=== PATIENT | female | born 1945 | race Caucasian/White ===

== ENCOUNTER 2016-08-19 18:57 | Emergency (ER) | payer MEDICARE, BC ==
[2016-08-19 20:04] VITALS: BP 141/63
[2016-08-19] MEDS ORDERED: predniSONE TAB* 20 MG PO ONE (20:04)
--- NOTE | 2016-08-19 20:45 | ED ---
Ernesto Tariq Alok, scribed for Abeba Lizarraga MD on 08/19/16 at 2002 . Throat Pain/Nasal Congestion - HPI Summary HPI Summary: 71F presents to the ED with fullness of the right hear accompanied by warmth, tinnitus, throbbing, and hearing loss. Pt state that her ear symptoms began today at approximately 1400 today while hiking. Pt states that her ear fullness is worse when bending over. Pt also notes aching below her right ear earlier which has subsided since. Pt also notes leg cramps more than baseline for the past few weeks. Pt denies trauma or recent swimming. Pt denies sinus pain. Pt denies dizziness. PMHx includes HLD and rapid heart beat. - History of Current Complaint Chief Complaint: EDEarPain Time Seen by Provider: 08/19/16 19:17 Hx Obtained From: Patient Onset/Duration: Lasting Hours, Still Present Severity: Moderate Associated Signs And Symptoms: Negative: Sinus Discomfort - Allergies/Home Medications Allergies/Adverse Reactions: Allergies Allergy/AdvReac Type Severity Reaction Status Date / Time Oxycodone [From Percocet] Allergy RAPID Verified 05/10/15 09:26 HEART RATE Sulfa Antibiotics Allergy Unknown Verified 05/10/15 09:26 Reaction Details ADHESIVE TAPE Allergy ITCHY RASH Uncoded 05/10/15 09:26 PMH/Surg Hx/FS Hx/Imm Hx Endocrine/Hematology History: Denies: Hx Diabetes Cardiovascular History: Reports: Hx Angina - NOT FOR YEARS, Hx Hypercholesterolemia, Hx Hypertension Denies: Hx Pacemaker/ICD Respiratory History: Denies: Hx Chronic Obstructive Pulmonary Disease (COPD) GI History: Reports: Hx Gastroesophageal Reflux Disease - WELL CONTROLLED History: Denies: Hx Dialysis Musculoskeletal History: Reports: Hx Arthritis - BILAT, Hx Orthopedic Injury - fractured ankle, Other Musculoskeletal History - sciatica 3 YRS Denies: Hx Back Problems, Hx Osteoporosis Sensory History: Reports: Hx Cataracts, Hx Contacts or Glasses - GLASSES Denies: Hx Hearing Aid Opthamlomology History: Reports: Hx Cataracts, Hx Contacts or Glasses - GLASSES Neurological History: Reports: Other Neuro Impairments/Disorders - OCC VERTIGO Denies: Hx Dementia, Hx Seizures Psychiatric History: Denies: Hx Panic Disorder - Cancer History Cancer Type, Location and Year: left breast cancer 2000 Hx Chemotherapy: No Hx Radiation Therapy: No - Surgical History Surgery Procedure, Year, and Place: hysterectomy [facility] 2000. knee arthroscopy - 2003 Lt. bilat cataract removal. lumpectomy left breast 2000. 2007 Rt [facility] ARTHROSCOPY. LEFT TKR 08/16 [facility] Hx Anesthesia Reactions: No Infectious Disease History: Reports: Hx Shingles - 2002 right leg Denies: Traveled Outside the [place] in Last 30 Days - Family History Known Family History: Positive: Other - No - HLD - Social History Occupation: Retired Lives: With Family Alcohol Use: Rare Substance Use Type: Reports: None Hx Tobacco Use: Yes Smoking Status (MU): Former Smoker Type: Cigarettes Length of Time of Smoking/Using Tobacco: 20 YRS Have You Smoked in the Last Year: No Review of Systems Negative: Fever Positive: Ear Ache, Other - tinnitus, hearing loss Neurological: Other - negative : dizziness All Other Systems Reviewed And Are Negative: Yes Physical Exam Triage Information Reviewed: Yes Vital Signs On Initial Exam: Initial Vitals Temp Pulse Resp BP Pulse Ox 97.8 F 97 16 152/72 99 08/19/16 18:59 08/19/16 18:59 08/19/16 18:59 08/19/16 18:59 08/19/16 18:59 Vital Signs Reviewed: Yes Appearance: Positive: Well-Appearing, No Pain Distress Skin: Positive: Warm, Skin Color Reflects Adequate Perfusion, Dry Eyes: Positive: EOMI, MARIELOS ENT: Positive: Pharynx normal, TMs normal Neck: Positive: Supple, Nontender Respiratory/Lung Sounds: Positive: Clear to Auscultation, Breath Sounds Present. Negative: Rales, Rhonchi, Wheezes Cardiovascular: Positive: RRR, Other - no gallop. Negative: Murmur, Rub Abdomen Description: Positive: Nontender, Soft, Other: - no rebound. Negative: Distended, Guarding Bowel Sounds: Positive: Present Musculoskeletal: Positive: Strength/ROM Intact. Negative: Edema Left, Edema Right Neurological: Positive: Sensory/Motor Intact, Alert, Oriented to Person Place, Time, CN Intact II-III Psychiatric: Positive: Affect/Mood Appropriate Diagnostics - Vital Signs Vital Signs Temp Pulse Resp BP Pulse Ox 08/19/16 18:59 97.8 F 97 16 152/72 99 - Laboratory Lab Statement: Any lab studies that have been ordered have been reviewed, and results considered in the medical decision making process. EENT Course/Dx - Course Course Of Treatment: 71 yo female with whooshing in her right ear since 2pm today, no baurotrauma, +hearing loss, exam normal. started on prednisone burst urgent f/u with ent for a hearing test, normal neuro exam - Diagnoses Provider Diagnoses: Tinnitus, Hearing loss - Provider Notifications Discussed Care Of Patient With: Arpan Addison - Recommends steroids, no decongestant Time Discussed With Above Provider: 20:05 Discharge - Discharge Plan Condition: Stable Disposition: HOME Prescriptions: predniSONE TAB* [Deltasone TAB*] 60 mg PO DAILY #12 tab Patient Education Materials: Tinnitus (ED), Hearing Loss (ED) Referrals: Arpan Addison MD [Medical Doctor] - 1 Day Additional Instructions: Please follow up with Dr. Addison as soon as possible. The documentation as recorded by the Ernesto mota Alok accurately reflects the service I personally performed and the decisions made by me, Abeba Lizarraga MD.
== END 2016-08-19 21:09 | disposition home or self-care (01) ==
LOC: ED 18:57
DX: H93.19 Tinnitus, unspecified ear (principal); H91.90 Unspecified hearing loss, unspecified ear; H92.02 Otalgia, left ear; Z87.891 Personal history of nicotine dependence
CPT/HCPCS: 99282; J7512

== ENCOUNTER 2016-10-19 21:05 | Inpatient (IN) | payer MEDICARE, BC ==
[2016-10-19] MEDS ORDERED: Aspirin Low Dose CHEW TAB* 81 MG PO ONE (21:46)
[2016-10-19] MEDS ORDERED: Nitroglycerin 2% OINT* 1 GM PAK TOPICAL ONE (21:47)
[2016-10-19 21:57] LABS: Hematocrit 37 % (35-47); Hemoglobin 12.5 g/dl (12.0-16.0); Mean Corpuscular HGB Conc 34 g/dl (31-36); Mean Corpuscular Hemoglobin 31 pg (27-31); Mean Corpuscular Volume 91 fL (80-97); Mean Platelet Volume 9 um3 (7.4-10.4); Red Blood Count 4.05 10^6/ul (4.0-5.4); Red Cell Distribution Width 12 % (10.5-15); White Blood Count 6.3 10^3/ul (3.5-10.8)
[2016-10-19 22:14] LABS: Albumin 4.2 g/dL (3.2-5.2); BUN/Creatinine Ratio 18.1 (8-20); Calcium 8.9 mg/dL (8.6-10.3); EGFR African American 75.7 (>60); EGFR Non-African American 58.9 (>60); Globulin 2.6 g/dL (2-4); Magnesium 2.3 mg/dL (1.9-2.7); Total Bilirubin 0.3 mg/dL (0.2-1.0); Total Protein 6.8 g/dL (6.4-8.9)
--- NOTE | 2016-10-19 22:22 | RAD ---
INDICATION: Chest pain. COMPARISON: Comparison is made with a prior chest x-ray study from March 28, 2015. TECHNIQUE: A portable view of the chest was obtained. FINDINGS: Cardiac and mediastinal contours appear to be within normal limits. The lungs are clear. No pleural effusion is seen. IMPRESSION: NO EVIDENCE FOR ACUTE DISEASE.
[2016-10-19] MEDS ORDERED: Potassium Chlor TAB* 20 MEQ TAB.ER PO ONE (22:50)
[2016-10-19] MEDS ORDERED: Metoprolol Tartrate TAB* 25 MG PO SCH (23:00)
[2016-10-19] MEDS ORDERED: Nitroglycerin TAB 0.4 MG* 0.4 MG TAB SL PRN (23:44)
[2016-10-20] MEDS: Enoxaparin(*) 60 MG/0.6 ML SYR SUBCUT SCH ×3 (01:22→22:28)
[2016-10-20] MEDS: Atorvastatin* 10 MG TAB PO SCH ×2 (01:23→20:22)
[2016-10-20] MEDS: Metoprolol Tartrate TAB* 25 MG PO SCH ×2 (01:23→09:22)
--- NOTE | 2016-10-20 02:47 | HP ---
CC: Dr. Seth; Dr. Hammonds ADMISSION HISTORY AND PHYSICAL: DATE OF ADMISSION: 10/19/16 CHIEF COMPLAINT: Chest pain. HISTORY OF PRESENT ILLNESS: Ms. Nunez is a 71-year-old woman with a history of palpitations and heartburn who reports the onset of substernal chest pain at around 5:30 p.m. this evening which was severe, rated 8/10, and radiated to her left arm. This began at rest and after she ate some soup. H er gave her aspirin and called the ambulance and then she had nitroglycerin in the ambulance which seemed to relieve the pain. However, in the emergency department the pain returned and respo nded again to topical nitroglycerin. The pain was associated with some shortness of breath, but no nausea, vomiting, and no radiation to the neck. She did have some other right-sided neck discomfort earlier this week which was more like a sore throat and was thought to be allergies at the primary care office. She was given a steroid nasal spray for allergies. At the time of evaluation, the pat ient says that the substernal chest pain is resolved, but there is a mild residual discomfort in the left lower chest near the coastal margin. The pain is not respirophasic. The pain was not exertio nal today. PAST MEDICAL HISTORY: Includes palpitations and GERD. She also reports right- sided pulsatile tinn itus for many years. Left 50% carotid stenosis seen on carotid Doppler in 2013. PAST SURGICAL HISTORY: Bilateral total knee replacement, left breast lumpectomy in the year 1999 fo r cancer, and hysterectomy. MEDICATIONS: On admission are: 1. Aspirin 81 mg p.o. daily. 2. Calcium 1 tab daily. 3. Toprol XL 25 mg p.o. q.p.m. 4. Nitroglycerin sublingual as needed. 5. Jamison-3 fatty acids 1000 mg daily. 6. Ranitidine 150 mg p.o. b.i.d. 7. Simvastatin 10 mg p.o. at bedtime. ALLERGIES: SULFA, LATEX, OXYCODONE, and other CODEINE DERIVATIVES. FAMILY HISTORY: Notable for mother who developed heart disease in her 60s and at age 98. [facility] at age 74 of [place]. 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 She is , she has 2 children. Sh e quit tobacco in 1985. No alcohol or drug use. REVIEW OF SYSTEMS: The patient denies any fevers, weight loss, or anorexia. The patient denies any peripheral edema or shortness of breath with exertion. She did have some shortness of breath today with chest pain. She reports long-term palpitations and has had Holter monitors and actually has a 24-hour monitor scheduled next week with Dr. Hammonds. The patient denies any abdominal pain, eunice sea, vomiting, or diarrhea. Remainder of all 14-point review of systems is negative other than ment ioned in the HPI. PHYSICAL EXAMINATION GENERAL: She is alert, in no acute distress. VITAL SIGNS: Temperature is 37.4, pulse 70, respirations 18, blood pressure is 108/69, and O2 sat i s 96%. HEENT: Head is normocephalic and atraumatic. Sclerae anicteric. Pupils are equal, round, and reac tive to light and accommodation. Oropharynx is moist, no lesions. NECK: No JVD and no carotid bruits. No thyromegaly. LUNGS: Clear to auscultation and percussion bilaterally. HEART: Regular rate and rhythm without murmurs, rubs, or gallops. ABDOMEN: Soft and nontender with positive bowel sounds. No hepatosplenomegaly. EXTREMITIES: No peripheral edema, dorsalis pedis pulses are 1+ bilaterally. NEUROLOGIC: Cranial nerves II through XII are intact. Motor strength is 5/5 throughout. Deep tend on reflexes were symmetric. PSYCHIATRIC: She does appear somewhat anxious as does her . LABORATORY DATA: Sodium 140, potassium 3.0, chloride 104, bicarb 29, BUN 7, creatinine 0.94, gluco se 182, calcium 8.9, troponin 0.0. BNP 41, INR 0.86, PTT 27.1. White count 6.3, hemoglobin 12.5, h ematocrit 37, and platelets 233,000. EKG; sinus tachycardia, less than [address] depressions in V4 through V5 as well as in lead 2. Chest x-ray negative for infiltrates or effusions. ASSESSMENT AND PLAN: A 71-year-old woman presenting with onset of angina at rest. Differential coul d include unstable angina, pulmonary emboli, exacerbation of gastroesophageal reflux disease, costoc hondritis, or anxiety. The patient will be admitted to the hospital for observation and followed on telemetry for her arrhythmias. She will have serial troponins and repeat EKG in the morning. The patient will have a D-dimer checked on emergency room laboratories to rule out pulmonary embolism. She has ongoing reflux and she will be on ranitidine twice a day. We could add a PPI if that ends u p being the diagnosis of exclusion. The patient had low potassium on admission from unknown etiology. This will be repleted and recheck ed in the morning. DVT prophylaxis will not be necessary as she is on full-dose Lovenox for cardioprotection purposes. For her peripheral vascular disease and possible coronary artery disease, we will check her lipids i n the morning to ensure she is on the appropriate dose of statin. [id number]/[facility] #: [id number]
[2016-10-20 05:15] LABS: Hematocrit 35 % (35-47); Hemoglobin 11.7 g/dl (12.0-16.0); Mean Corpuscular HGB Conc 34 g/dl (31-36); Mean Corpuscular Hemoglobin 31 pg (27-31); Mean Corpuscular Volume 91 fL (80-97); Mean Platelet Volume 9 um3 (7.4-10.4); Red Blood Count 3.78 10^6/ul (4.0-5.4); Red Cell Distribution Width 12 % (10.5-15); White Blood Count 5.9 10^3/ul (3.5-10.8)
[2016-10-20 05:30] LABS: BUN/Creatinine Ratio 18.2 (8-20); Calcium 9.1 mg/dL (8.6-10.3); EGFR African American 81.7 (>60); EGFR Non-African American 63.5 (>60); HDL Cholesterol 60.2 mg/dL
[2016-10-20] MEDS: Aspirin Low Dose CHEW TAB* 81 MG PO SCH (09:25)
[2016-10-20] MEDS: Famotidine TAB* 20 MG PO SCH ×2 (09:25→20:21)
[2016-10-20] MEDS: CMCS: OMEGA-3 FATTY ACIDS (NF) 1,000 MG CAP PO SCH (11:15)
[2016-10-20] MEDS: Acetaminophen TAB* 325 MG PO PRN ×2 (11:50→22:28)
--- NOTE | 2016-10-20 14:00 | PN ---
Subjective Date of Service: 10/20/16 Interval History: Patient seen this morning. No recurrence of chest pain/pressure. This did not feel like her typical GERD symptoms. Reports episodes of palpitations that have been occurring for some time, currently has appointment for monitor with Dr. Hammonds. Family History: Unchanged from Admission Social History: Unchanged from Admission Past Medical History: Unchanged from Admission Objective Active Medications: Acetaminophen (Tylenol Tab*) 650 mg PO Q6H PRN Aspirin (Aspirin Low Dose Tab*) 81 mg PO DAILY LINSEY Atorvastatin Calcium (Lipitor*) 5 mg PO BEDTIME LINSEY Enoxaparin Sodium (Lovenox(*)) 60 mg SUBCUT Q12H LINSEY Famotidine (Pepcid Tab*) 20 mg PO BID LINSEY Fish Oil (Fish Oil (Nf)) 1,000 mg PO QAM LINSEY Nitroglycerin (Nitroglycerin Tab 0.4 Mg*) 0.4 mg SL Q5M PRN Vital Signs 10/19/16 10/19/16 10/20/16 23:00 23:35 00:35 Temperature 98.4 F Pulse Rate 79 70 71 Respiratory 23 18 17 Rate Blood Pressure 118/58 108/69 128/63 (mmHg) O2 Sat by Pulse 96 96 98 Oximetry 10/20/16 11:11 Temperature 98.3 F Pulse Rate 65 Respiratory 16 Rate Blood Pressure 115/62 (mmHg) O2 Sat by Pulse 97 Oximetry Oxygen Devices in Use Now: None Appearance: [place], F, laying in bed in NAD Eyes: No Scleral Icterus Ears/Nose/Mouth/Throat: Mucous Membranes Moist Neck: NL Appearance and Movements; NL JVP Respiratory: Symmetrical Chest Expansion and Respiratory Effort, Clear to Auscultation Cardiovascular: NL Sounds; No Murmurs; No JVD, RRR Abdominal: NL Sounds; No Tenderness; No Distention Lymphatic: No Cervical Adenopathy Extremities: No Edema Skin: No Rash or Ulcers Neurological: Alert and Oriented x 3 Result Diagrams: 10/20/16 04:58 10/20/16 04:58 Assess/Plan/Problems-Billing Assessment: Chest pressure, palpitations in a 71 yo F with hx of GERD, mild carotid stenosis - Patient Problems (1) Chest pressure Current Visit: Yes Comment: Troponins peaked at 0.05. EKG changes resolved. Continue statin. Dr. Stacy feels this may be a result of underlying arrhythmia /palpitations that patient has been complaining about. Will hold beta-jeremy. Continue ASA and therapeutic Lovenox. (2) Palpitations Current Visit: Yes Comment: Possible underlying arrhythmia that has not yet been captured. Will hold Metoprolol. Continue tele. (3) GERD (gastroesophageal reflux disease) Current Visit: No Comment: Continue Pepcid (4) DVT prophylaxis Current Visit: No Comment: Lovenox
--- NOTE | 2016-10-20 15:41 | CONS ---
CC: Dr. Lesia Seth; Dr. Hammonds; Hospitalist Service CONSULTATION NOTE: DATE OF CONSULTATION: 10/20/16. REASON FOR CONSULTATION: Chest pain and palpitation. CHIEF COMPLAINT: Pounding palpitations and substernal chest pain going to left arm. HISTORY OF PRESENT ILLNESS: Isabela is a 71-year-old patient of Dr. Hammonds's who has had history o f intermittent palpitations and to my knowledge, the etiology has never been determined. The patien maggie has had an escalation in the frequency of her palpitations recently, typically though having in th e late evening after dinner and she thinks there is an association with food and initiation are late in the day. She is on a low-dose of metoprolol, takes it at night. Yesterday, she was in her usual state of health, felt fine, had dinner and following dinner develope d some chest discomfort and some wooziness. She went to sit down and she states her heart took off, worse than it ever had. At this time it was associated with severe substernal chest discomfort, ra diating to the left shoulder. She called her , Sofy was called, but by the time Sofy was c alled, the pounding of the heart had subsided significantly and continued to improve. She has not h ad recurrence of these symptoms since admission (beta- jeremy increased). The only recent changes are that the patient had a sore throat a couple of weeks ago, was transientl y on Augmentin, which led to GI side effects and amoxicillin, but a brief course. She has also had earache a couple of weeks after that and started on fluticasone nasal spray, otherwise she has been her usual medications. She denies orthopnea or PND and she denies chest pain or palpitations precipi tated by exertion. PAST MEDICAL HISTORY: 1. The patient has a past medical history of longstanding palpitations as above, never caught. 2. Dyslipidemia, on simvastatin. 3. Peripheral vascular disease involving the carotids (30% to 50% occlusions bilaterally, in 2013). 4. Chest pain syndrome with negative cath in 1992. 5. Reflux, felt to be related to hiatal hernia and esophageal spasm. 6. Breast cancer, status post lumpectomy in 2000. 7. Shingles in 2002. 8. Degenerative arthritis. 9. Vertigo. PAST SURGICAL HISTORY: 1. Hysterectomy in 2000. 2. Knee arthroscopy 2003. 3. Cataract surgery in 2004. 4. Lumpectomy 2000. 5. Knee replacement 2014. 6. Knee replacement 2016. OUTPATIENT MEDICATIONS: Include, 1. Simvastatin 10 mg a day. 2. Ranitidine 150 mg b.i.d. 3. Triamcinolone cream. 4. Amoxicillin, transient. 5. Nitroglycerin p.r.n. 6. MultiVites. 7. Aspirin 81 mg a day. 8. Calcium 500 mg a day. 9. Atherton 3-6-9 complex. 10. Tylenol p.r.n. 11. Metoprolol ER 25 mg a day. INPATIENT MEDICATIONS: Include, 1. Tylenol p.r.n. 2. Aspirin 81 mg a day. 3. Lipitor 5 mg q.h.s. 4. Lovenox 60 mg q. 12 hours. 5. Pepcid 20 mg b.i.d. 6. Fish oil 1000 mg a day. 7. Lopressor 25 mg q. 8. 8. Sublingual nitroglycerin p.r.n. ALLERGIES: Include SULFA, HYDROCODONE, OXYCODONE, TAPE, and PERCOCET. FAMILY HISTORY: Significant that her father of a myocardial infarction at age 75 and with a hi story of hypertension and cholesterol. Her mother at age 98 with a history of cholesterol and hypertension. Her sister has a history of hypertension. SOCIAL HISTORY: The patient is , has a supportive who is in the room at the time of the exam. She stopped smoking in 1985, 20 years of half pack a day. No current alcohol use, none s madhav 2008. Drinks 3 cups of coffee a day. REVIEW OF SYSTEMS: Significant for the above mentioned palpitations with escalating frequency, rece nt substernal chest pressure radiating to the left arm following initiation of palpitations. She sunshine s also had some leg cramping that occurs at night, reflux, the recent sore throat with negative cult ures for strep and recent right ear discomfort. She will hear pulsing in the right neck at times. N egative for fevers, chills, sweats. No coughing. No change of bowel or bladder habits. I did not elicit any claudication symptoms. All other 14-point review of systems was negative. PHYSICAL EXAMINATION: The patient is 5 feet 4 inches, weighs 145 pounds with a BMI of 25. Vital Si gns: On arrival to the emergency department, blood pressure 147/66, pulse 100. Currently, pulse of 55 and regular, blood pressure 119/92, oxygen saturation 97% on room air, and temperature 98 degree s. General appearance: Fit-appearing older woman, in no acute distress. Psychologically, calm, coop erative, pleasant. Neurologically, awake, alert, oriented to person, place, and time. Cranial nerv es II through XII intact. Grossly normal sensory motor function in the upper and lower extremities. Normal gait. Skin: Age appropriate changes, evidence of some sun exposure. Warm and dry. No cy anosis or rashes. HEENT: Pupils are equal and round. Mucous membranes moist. Neck without increase d JVP appreciated. Good carotid pulses. I did not hear audible bruits. No lymphadenopathy or thyr omegaly. Lungs: Clear with good effort. No wheezes, rales, or rhonchi. Coronary: S1, S2, regular . No murmurs, rubs, or extra heart sounds. Abdomen: Active bowel sounds. Soft, nontender. No he patosplenomegaly, masses, or bruits appreciated. Lower extremities had strong posterior tibial puls es that are symmetrical and were free of edema and warm. DIAGNOSTIC STUDIES/LAB DATA: A 12-lead ECG on admission to the emergency department yesterday showe d sinus tachycardia, 100 beats per minute, QRS axis +30 with normal AV and IV conduction times. She had ST depression in the lateral leads V3 through V6. Repeat EKG today shows sinus rhythm 66 beats a minute, QRS axis of +30, normal AV and IV conduction times and normalization of STs. Chest x-ray on admission, no acute disease. Echocardiogram done by Dr. Hammonds on 03/24/15 showed normal ventricular function and normal valvular function. Most recent stress testing was 2011, negative for ischemia. Holter monitor in 2012 showed rare PACs, PVCs. This study did not capture her typical symptoms. In 1992 cath by report showed normal coronaries. Labs on admission, sodium 140, potassium 3.0, chloride 104, bicarb 29, BUN 17, creatinine 0.94, gluc ose 182, magnesium 2.3, ALT of 13. Troponin #1 of 0.00, troponin #2 of 0.04, troponin #3 0.05, and t roponin #4 of 0.04. BNP of 41. Total cholesterol 146, triglycerides 57, LDL cholesterol 74, and HD L cholesterol 70. INR 0.86, PTT 27, D-dimer 208. White count 6.3, hemoglobin 12.5, hematocrit 37, platelets 233, unremarkable differential. IMPRESSION: In summary, Isabela Nunez is a 71-year-old woman admitted with acute onset of pounding of the chest associated with substernal chest discomfort radiating to the left shoulder with ST dep ression and very mild bump in troponins. I suspect that she has had a tachyarrhythmia that has not yet been caught and there would be a diffe rential of atrial fibrillation or flutter with rapid rate; alternatively it could be a reentrant rhy thm. The timing of it coming on at night would be when her beta-jeremy is at its lowest level or i t could also be precipitated by increased vagal tone from dinner. As this is occurring before sleep , it does not sound to me like it is related to sleep apnea and her denies that she snores o r stops breathing, although he wears CPAP himself and said he might not know. I suspect the rhythm is the primary problem and has led to a mild ischemia of the heart with seconda ry EKG changes. There is still a differential in terms of ischemia that this could be purely from rapid rate and poo r global perfusion versus concomitant atherosclerotic heart disease and she has arthrosclerotic risk of family history, distant smoking, and dyslipidemia. I think what is most important for overall care would be to catch the dysrhythmia. We could consider pulling back her metoprolol and seeing if we can catch it here. As she had normal coronaries in the past, there would be an option of an exercise Myoview study to e valuate for underlying atherosclerotic heart disease versus a repeat heart catheterization. If we are unable to document the rhythm or find evidence of ischemic heart disease during this admis joi, we could keep her on increased her beta-jeremy and continue with outpatient plans for an even t monitor to wear for a month and make tentative plans for referral to an university president. If w e were unable to catch her dysrhythmia on a monitor, she may be able to undergo EP testing that veronica mann precipitate and identify the dysrhythmia and management recommendations could then be made. Additional considerations include her hyponatremia on admission and hyperglycemia. In looking at out patient labs from December 2015, her potassium was 4.8 and her glucose was 88, so this may be a stres s reaction with glucose leading the potassium being predominantly intracellular, but this is specula tion or theory. Additional recommendations will be made pending her clinical course. If she has an y recurrent anginal type symptoms, I would have a low index for referral directly to the cardiac cat heterization. [id number]/[facility] #: [id number]
[2016-10-21] MEDS: Aspirin Low Dose CHEW TAB* 81 MG PO SCH (09:07)
[2016-10-21] MEDS: CMCS: OMEGA-3 FATTY ACIDS (NF) 1,000 MG CAP PO SCH (09:07)
[2016-10-21] MEDS: Famotidine TAB* 20 MG PO SCH ×2 (09:08→20:06)
--- NOTE | 2016-10-21 10:58 | PN ---
Subjective Date of Service: 10/21/16 - CC: chest pounding/chest pain. Interval History: No recurrence of chest pounding or CP. Walking and feels well. Sleeping well. Medications Active Medications: Acetaminophen (Tylenol Tab*) 650 mg PO Q6H PRN PRN Reason: PAIN Last Admin: 10/20/16 22:28 Dose: 650 mg Aspirin (Aspirin Low Dose Tab*) 81 mg PO DAILY [facility] Last Admin: 10/21/16 09:07 Dose: 81 mg Atorvastatin Calcium (Lipitor*) 5 mg PO BEDTIME [facility] Last Admin: 10/20/16 20:22 Dose: 5 mg Enoxaparin Sodium (Lovenox(*)) 60 mg SUBCUT Q12H LINSE[facility] Last Admin: 10/20/16 22:28 Dose: 60 mg Famotidine (Pepcid Tab*) 20 mg PO BID LINSEY PRN Reason: Protocol Last Admin: 10/21/16 09:08 Dose: 20 mg Fish Oil (Fish Oil (Nf)) 1,000 mg PO QAM LINSEY PRN Reason: Protocol Last Admin: 10/21/16 09:07 Dose: 1,000 mg Nitroglycerin (Nitroglycerin Tab 0.4 Mg*) 0.4 mg SL Q5M PRN PRN Reason: PAIN - CHEST Objective Vital Signs: Temp Pulse Resp BP Pulse Ox 98.0 F 73 16 111/63 100 10/21/16 07:40 10/21/16 07:40 10/21/16 08:00 10/21/16 07:40 10/21/16 07:40 Oxygen Devices in Use Now: None Appearance: lean, fit appearing older woman in no distress, sitting with . Eyes: No Scleral Icterus, PERRLA Ears/Nose/Mouth/Throat: Clear Oropharnyx, Mucous Membranes Moist Neck: NL Appearance and Movements; NL JVP - strong carotid pulses, no bruits., Trachea Midline, No Thyroid Enlargement, Masses Respiratory: Symmetrical Chest Expansion and Respiratory Effort, Clear to Auscultation Cardiovascular: NL Sounds; No Murmurs; No JVD, RRR Abdominal: NL Sounds; No Tenderness; No Distention, No Hepatosplenomegaly Neurological: Alert and Oriented x 3, NL Sensation, NL Gait Laboratory Results: INR (Anticoag Therapy) 0.86 (0.89-1.11) L 10/19/16 21:19 APTT 27.1 seconds (26.0-36.3) 10/19/16 21:19 Total Bilirubin 0.30 mg/dL (0.2-1.0) 10/19/16 21:19 AST 21 U/L (13-39) 10/19/16 21:19 ALT 13 U/L (7-52) 10/19/16 21:19 Alkaline Phosphatase 47 U/L (34-104) 10/19/16 21:19 B-Natriuretic Peptide 41 pg/mL (-100) 10/19/16 21:19 Total Protein 6.8 g/dL (6.4-8.9) 10/19/16 21:19 Albumin 4.2 g/dL (3.2-5.2) 10/19/16 21:19 Globulin 2.6 g/dL (2-4) 10/19/16 21:19 Albumin/Globulin Ratio 1.6 (1-3) 10/19/16 21:19 Triglycerides 57 mg/dL 10/20/16 04:58 Cholesterol 146 mg/dL 10/20/16 04:58 LDL Cholesterol 74 mg/dL 10/20/16 04:58 HDL Cholesterol 60.2 mg/dL 10/20/16 04:58 EKG Data: Monitor: 5 beats SVT approx 150 bpm yesterday 10 AM. Assessment/Plan 71 yo female with episodic sustained pounding/palpitations hs, admitted with one of these, stronger than in the past and associated with anginal symptoms of SS CP and L shoulder pain. ECG in ED: ST with mild lateral ST depression. Borderline elevation in troponins. CAD risks of FHx, PVD (carotids), cholesterol. Scenrio c/w tachycardic induced ischemia. Points of Discussion: CP: With ST changes, borderline elevation in troponins and CAD risks she needs ischemic evaluation. As there is a differential of tachycardic induced ischemia alone vs. tachycardic induced ischemia with CAD I am not sending her for cath, I am arranging for exercise myoview. Palpitations/pounding: -Likely SVT, sustained. -Keep off metoprolol for now and see if we can document rhythm with symptoms. This will also allow her to reach target HR on her stress test. If no sustained dysrhythmias and normal stress test I would discharge with an event monitor or Holter until EM can be arranged.
[2016-10-21] MEDS: Enoxaparin(*) 60 MG/0.6 ML SYR SUBCUT SCH (11:27)
--- NOTE | 2016-10-21 13:36 | PN ---
Subjective Date of Service: 10/21/16 Interval History: Patient seen this morning. No significant palpitations, no chest pain. Continues to have sensation of blood pulsing in her ears, associated with some discomfort inferior to the ear near the mandible. Has been going on for some time, has seen ENT and PCP a number of times, was recently started on Fluticasone but only took one dose. Family History: Unchanged from Admission Social History: Unchanged from Admission Past Medical History: Unchanged from Admission Objective Active Medications: Acetaminophen (Tylenol Tab*) 650 mg PO Q6H PRN Aspirin (Aspirin Low Dose Tab*) 81 mg PO DAILY LINSEY Atorvastatin Calcium (Lipitor*) 5 mg PO BEDTIME LINSE[facility] Enoxaparin Sodium (Lovenox(*)) 60 mg SUBCUT Q12H [facility] Famotidine (Pepcid Tab*) 20 mg PO BID [facility]SE[facility] Fish Oil (Fish Oil (Nf)) 1,000 mg PO QAM LINSE[facility] Fluticasone Propionate (Flonase Nasal [place] 50mcg*) 2 spray RIGHT NARE DAILY [facility]SE[facility] Nitroglycerin (Nitroglycerin Tab 0.4 Mg*) 0.4 mg SL Q5M PRN Vital Signs 10/20/16 10/20/16 10/20/16 15:25 19:59 23:56 Temperature 98.8 F 98.4 F 97.8 F Pulse Rate 66 66 66 Respiratory 16 16 16 Rate Blood Pressure 96/51 123/40 109/49 (mmHg) O2 Sat by Pulse 97 97 98 Oximetry 10/21/16 10/21/16 10/21/16 04:29 06:52 07:40 Temperature 98.1 F 98.1 F 98.0 F Pulse Rate 69 69 73 Respiratory 16 16 16 Rate Blood Pressure 110/69 110/69 111/63 (mmHg) O2 Sat by Pulse 96 96 100 Oximetry 10/21/16 10/21/16 08:00 11:21 Temperature 98.1 F Pulse Rate 70 Respiratory 16 16 Rate Blood Pressure 122/61 (mmHg) O2 Sat by Pulse 97 Oximetry Oxygen Devices in Use Now: None Appearance: Elderly, F, laying in bed in NAD Eyes: No Scleral Icterus Ears/Nose/Mouth/Throat: Mucous Membranes Moist, - - L TM normal, R TM, ?mild bulging, no fluid seen Neck: NL Appearance and Movements; NL JVP Respiratory: Symmetrical Chest Expansion and Respiratory Effort, Clear to Auscultation Cardiovascular: NL Sounds; No Murmurs; No JVD, RRR Abdominal: NL Sounds; No Tenderness; No Distention Lymphatic: No Cervical Adenopathy Extremities: No Edema Skin: No Rash or Ulcers Neurological: Alert and Oriented x 3 Result Diagrams: 10/20/16 04:58 10/20/16 04:58 Assess/Plan/Problems-Billing Assessment: Chest pressure, palpitations in a 71 yo F with hx of GERD, mild carotid stenosis - Patient Problems (1) Chest pressure Current Visit: Yes Comment: Troponins peaked at 0.05. EKG changes resolved. Continue statin. Dr. Stacy feels this may be a result of underlying arrhythmia /palpitations that patient has been complaining about. Will hold beta-jeremy. Continue ASA and therapeutic Lovenox. Plan for NST on 10/22 (2) Palpitations Current Visit: Yes Comment: Possible underlying arrhythmia that has not yet been captured. Will hold Metoprolol. Continue tele. (3) GERD (gastroesophageal reflux disease) Current Visit: No Comment: Continue Pepcid (4) DVT prophylaxis Current Visit: No Comment: Lovenox
[2016-10-21] MEDS: Fluticasone NASAL SPRAY 50MCG* 16 gm SPRAY BTL RIGHT NARE SCH (14:10)
[2016-10-21] MEDS: Atorvastatin* 10 MG TAB PO SCH (20:06)
[2016-10-21] MEDS: Acetaminophen TAB* 325 MG PO PRN (20:06)
[2016-10-22] MEDS: Enoxaparin(*) 60 MG/0.6 ML SYR SUBCUT SCH ×2 (00:02→10:32)
--- NOTE | 2016-10-22 10:22 | RAD ---
HISTORY: Chest pain, ST changes consciousness of breath, family history of heart disease COMPARISONS: None TECHNIQUE: A 1 day stress/rest myocardial perfusion study was performed, with exercise stress. The exercise portion was performed using the Jean-Pierre protocol, for a total METs of 4.6. The stress portion was monitored by Dr. Ryan. Gated SPECT imaging was performed, with CT-based attenuation correction DOSE: Stress: Technetium 99m tetrofosmin, 25.77 millicuries, injected at 9:04 AM on October 22, 2016 Rest: Technetium 99m tetrofosmin, 10.4 millicuries, injected at 7:39 AM on October 22, 2016 Pharmacologic agent: None FINDINGS: CARDIAC MONITORING: Peak heart rate of 152 bpm, 101% of predicted EF: 77 % TID: 1.01 MOTION: Normal motion, with normal wall thickening. PERFUSION: There is a small fixed defect along the lateral wall on the attenuation images which may be an artifact of misregistration. Elsewhere, there are no fixed or reversible perfusion defects OTHER: None IMPRESSION: NO DEFINITE FIXED OR REVERSIBLE PERFUSION DEFECTS. ASSESSMENT: LOW RISK. Based on imaging criteria from ACC/AHA 2002. Guideline Update for the Management of Patient's with Chronic Stable Angina, table 23. Noninvasive Risk Stratification.
[2016-10-22] MEDS: Famotidine TAB* 20 MG PO SCH (10:23)
[2016-10-22] MEDS: Acetaminophen TAB* 325 MG PO PRN (10:24)
[2016-10-22] MEDS: CMCS: OMEGA-3 FATTY ACIDS (NF) 1,000 MG CAP PO SCH (10:24)
[2016-10-22] MEDS: Aspirin Low Dose CHEW TAB* 81 MG PO SCH (10:24)
[2016-10-22] MEDS: Fluticasone NASAL SPRAY 50MCG* 16 gm SPRAY BTL RIGHT NARE SCH (10:25)
[2016-10-22] MEDS ORDERED: Metoprolol Succinate XL TAB* 25 MG PO SCH (11:00)
--- NOTE | 2016-10-22 14:56 | DCNOTE ---
Patient seen this morning and again in the afternoon. Reports sensation of palpitations overnight and also around the stress test. No significant events on tele overnight, had sinus tachycardia with stress test. On exam, RRR, s1 and s2 present, no m/g/r, lungs CTA B/L, no w/r/r, abd soft, NTND, BS+ Appreciate Cardiology assistance. Dr. Reyes recommends transitioning to Atenolol and arranging for event monitor.
[2016-10-22 16:24] VITALS: BP 102/54
[2016-10-22] MEDS ORDERED: Atenolol TAB* 25 MG PO SCH (21:00)
--- NOTE | 2016-10-23 02:34 | DS ---
CC: Dr. Seth; Dr. Hammonds; Dr. Reyes * DISCHARGE SUMMARY: DATE OF ADMISSION: 10/19/16 DATE OF DISCHARGE: 10/22/16 PRIMARY CARE PHYSICIAN: Lesia Seth MD PRINCIPAL DISCHARGE DIAGNOSES: Palpitations, chest pain, nonischemic in origin. SECONDARY DIAGNOSES: 1. Gastroesophageal reflux disease. 2. Pulsatile tinnitus. 3. Carotid stenosis. DISCHARGE MEDICATION REGIMEN: 1. Atenolol 25 mg by mouth 2 times daily. 2. Aspirin 81 mg by mouth daily. 3. Calcium 250 mg by mouth daily. 4. Nitroglycerin 0.4 mg sublingual as needed for angina. 5. [place]-3 fatty acids 1 capsule by mouth daily. 6. Simvastatin 10 mg by mouth at bedtime. 7. Ranitidine 150 mg by mouth 2 times daily. STUDIES DONE DURING HOSPITALIZATION: Chest x-ray: Impression: No evidence for acute disease. Nuclear cardiac stress test: Impression: No definite fixed or reversible perfusion defect, assessment low risk. HISTORY OF PRESENT ILLNESS AND HOSPITAL SUMMARY: Please see the full history and physical by Dr. Dimitrios Reilly for full details. Briefly, Ms. Nunez is a 71 -year- old female with a past medical history as above, who presented to hospital with significant palpitations and chest pain. The patient has had these palpitations for sometime; however, this was more severe than usual and was associated with chest pain that radiated down the left arm. The patient had some questionable ST depressions on her initial EKG and a mild troponin elevation that peaked to 0.05. Cardiology was consulted and Dr. Stacy was concerned that perhaps the palpitations were the source of the angina. She recommended holding the patient's beta-jeremy to see if we can revoke the palpitations here in the hospital. The night prior to discharge, the patient stated she felt the palpitations recur; however, there were no significant events on telemetry at this time. She did have some tachycardia and palpitations around the time of her stress test; however, her stress test was negative. Dr. Reyes reevaluated the patient and assured her that there were no concerning underlying arrhythmias that are dangerous to the patient. He recommended transitioning the patient to atenolol from metoprolol, which was done. She will start tonight at 25 mg by mouth [address] Reyes will also set the patient up for an event monitor to try to determine if there is any other etiology for her palpitations and how frequent they are occurring. The patient will be discharged home on the above medication regimen to follow up with her PCP and Cardiology as an outpatient. TIME SPENT: Total time spent on this discharge was 40 minutes. This is a summary of the hospitalization. Please see the full medical record for further details. [id number]/[facility] #: [id number] MTDD
== END 2016-10-22 16:33 | disposition home or self-care (01) | DRG 310 ==
LOC: ED 21:05 → MEDTELE 22:55 → OBSVTOIN 10-20 12:00
PROVIDERS: ADMIT Internal Medicine; ATTEND Hospitalist
DX: R00.2 Palpitations (principal); I65.29 Occlusion and stenosis of unspecified carotid artery; E78.5 Hyperlipidemia, unspecified; I73.9 Peripheral vascular disease, unspecified; R07.9 Chest pain, unspecified; K21.9 Gastro-esophageal reflux disease without esophagitis; Z85.3 Personal history of malignant neoplasm of breast; Z96.653 Presence of artificial knee joint, bilateral; R00.0 Tachycardia, unspecified; H93.A1 Pulsatile tinnitus, right ear; Z79.82 Long term (current) use of aspirin; Z79.899 Other long term (current) drug therapy; Z88.5 Allergy status to narcotic agent; Z88.2 Allergy status to sulfonamides; Z91.040 Latex allergy status; Z82.49 Family history of ischemic heart disease and other diseases of the circulatory system; Z87.891 Personal history of nicotine dependence
CPT/HCPCS: 36415; 71010; 78452; 80048; 80053; 80061; 83735; 83880; 84443; 84484; 85025; 85379; 85610; 85730; 93005; 93017; A9270-GY; A9502; J1650

== ENCOUNTER 2017-03-05 14:16 | Emergency (ER) | payer MEDICARE, BC ==
[2017-03-05 14:49] VITALS: BP 125/63
--- NOTE | 2017-03-05 15:19 | UC ---
Jaxon Tariq Natalie, scribed for Talib Bradford MD on 03/05/17 at 1509 . Eye Complaint HPI - HPI Summary HPI Summary: The pt is a 71 y/o F presenting to the urgent care c/o sinus congestion and worsening within the last week. She was seen by her PCP on 02/08/17 for sinus congestion, where she was given Amoxicillin and Fluticasone for possible sinus infection. After finishing the antibiotics on 02/18/17, she felt like she was getting better, but her symptoms worsened. She complains of tearing right eye the past few days, but no pain in the eyeball. No change in her vision. She states the bright sunlight on the snow bothers her eyes. She states her eyelids seem a little swollen but no pain. Her pain is localized to the right maxillary sinus and medial near the nose. She has no pain behind the right eye or in her eye ball itself. Her nose is also runny every morning.Pt denies changes in vision, hearing, and speech. The pt uses a CPAP every night. She has a history of tachycardia. She does not smoke or drink. She has had a hysterectomy, lumpectomy, bilateral knee arthroscopy, and cataracts. - History of Current Complaint Chief Complaint: UCGeneralIllness Stated Complaint: EYE ISSUE Hx Obtained From: Patient Onset/Duration: Lasting Days - sinus infection starting 02/08/17, Still Present , Worse Since - this past week Timing: Constant Location of Injury: Other - right eye Aggravating Factor(s): Light Alleviating Factor(s): Nothing Associated Signs And Symptoms: Positive: Photophobia - to right eye, Swelling - Allergies/Home Medications Allergies/Adverse Reactions: Allergies Allergy/AdvReac Type Severity Reaction Status Date / Time Latex Allergy Itching Verified 03/05/17 14:49 Oxycodone [From Percocet] Allergy RAPID Verified 03/05/17 14:49 HEART RATE Sulfa Antibiotics Allergy Unknown Verified 03/05/17 14:49 Reaction Details ADHESIVE TAPE Allergy ITCHY RASH Uncoded 03/05/17 14:49 PMH/Surg Hx/FS Hx/Imm Hx Previously Healthy: No - Surgical History Surgical History: Yes Surgery Procedure, Year, and Place: hysterectomy [facility] 2000. knee arthroscopy - 2003 Lt. bilat cataract removal. lumpectomy left breast 2001 - [facility]. 2006 Rt KNEE ARTHROSCOPY. LEFT TOTAL KNEE REPLACEMENT. LEFT TKR 08/16 [facility]. Rt TOTAL KNEE REPLACEMENT - Family History Known Family History: Positive: Cardiac Disease, Hypertension, Diabetes, Other - No - HLD - Social History Alcohol Use: None Substance Use Type: None Smoking Status (MU): Former Smoker Type: Cigarettes Length of Time of Smoking/Using Tobacco: 20 YRS Have You Smoked in the Last Year: No When Did the Patient Quit Smoking/Using Tobacco: 1985 - Immunization History Most Recent Influenza Vaccination: Fall 2016 Most Recent Tetanus Shot: 2011 Most Recent Pneumonia Vaccination: 02/2016 Review of Systems Eyes: Drainage - clear, watery, Photophobia, Other - POSITIVE: swelling in right eye; NEGATIVE: vision changes ENT: Other - NEGATIVE: changes in hearing Respiratory: Other - nasal congestion Neurological: Other - NEGATIVE: changes in speech All Other Systems Reviewed And Are Negative: Yes Physical Exam Triage Information Reviewed: Yes Appearance: Well-Appearing, No Pain Distress, Well-Nourished Vital Signs: Initial Vital Signs Temp 98.5 F 03/05/17 14:41 Pulse 74 03/05/17 14:41 Resp 18 03/05/17 14:41 BP 125/63 03/05/17 14:41 Pulse Ox 98 03/05/17 14:41 Vital Signs Reviewed: Yes Eyes: Positive: Conjunctiva Clear, Other: - No swelling to any of her eyelids, and no proptosis of the globe. She has full range of motion on her Extraoccular movements and no pain at all on movement of her eyes. She has NO photophobia with bright otoscope light shined in either of her eyes. and pupils are PERRLA. ENT: Positive: Normal ENT inspection, Nasal congestion, TMs normal, Sinus tenderness - right maxillary Neck: Positive: Supple, Nontender Respiratory: Positive: Chest non-tender, Lungs clear, Normal breath sounds, No respiratory distress Cardiovascular: Positive: RRR, No Murmur Abdomen Description: Positive: Nontender Musculoskeletal: Positive: ROM Intact Psychological: Positive: Normal Response To Family, Age Appropriate Behavior, Other: - CN 2-12 grossly intact, strength 5/5 throughout, sensory grossly intact throughout, gait normal. Speech is normal Skin Exam: Normal Eye Complaint Course/Dx - Course Course Of Treatment: 71 yr old who was only on amoxicillin and got partially better for sinus infection. She cannot tolerate Augmentin. I will put her on doxycycline. FU with PMD. - Differential Dx/Diagnosis Provider Diagnoses: sinusitis Discharge - Discharge Plan Condition: Good Disposition: HOME Prescriptions: Doxycycline (Monohydrate) [Doxycycline Monohydrate] 100 mg PO BID #20 cap Patient Education Materials: Sinusitis (ED) Referrals: Lesia Seth MD [Primary Care Provider] - 1 Day The documentation as recorded by the Jaxon mota Natalie accurately reflects the service I personally performed and the decisions made by me, Talib Bradford MD.
== END 2017-03-05 15:15 | disposition home or self-care (01) ==
LOC: UCEAST 14:16
DX: J32.9 Chronic sinusitis, unspecified (principal); Z91.040 Latex allergy status; Z88.5 Allergy status to narcotic agent; Z88.2 Allergy status to sulfonamides; Z91.09 Other allergy status, other than to drugs and biological substances; Z87.891 Personal history of nicotine dependence
CPT/HCPCS: 99212; G0463

== ENCOUNTER 2021-04-11 06:39 | Observation (INO) ==
[~2021-04-11 06:39] MED LIST: Buffered Lidocaine 1% SYRIN 1 ml INTRADERM ONE; Lactated Ringers 1000 ml BAG 1,000 ML IV SCH
[2021-04-11] MEDS ORDERED: fentaNYL 100 mcg/2 ml 50 MCG/ML VIAL ONE (07:02)
[2021-04-11] MEDS ORDERED: Lidocaine 2% PF 5 ML VIAL ONE (07:02)
[2021-04-11] MEDS ORDERED: Phenylephrine IV 10 MG/ML 1 ml VIAL ONE (07:02)
[2021-04-11] MEDS ORDERED: Midazolam 2 mg/2 ml VIAL 1 mg/ml 2 ml VIAL (2 mg) ONE (07:03)
[2021-04-11] MEDS ORDERED: ceFAZolin 1 GM ADVAN 1 GM ADDV.VIAL IVPB ONE (07:17)
[2021-04-11] MEDS ORDERED: DiMENhydriNATE IV 50 mg/ml 1 ml VIAL IV PUSH PRN (07:45)
[2021-04-11] MEDS ORDERED: diPHENhydraMINE IV 50 MG/ML 1 ml VIAL (BENADRYL) IV PRN ×2 (07:45→08:35)
[2021-04-11] MEDS ORDERED: fentaNYL 100 mcg/2 ml 50 MCG/ML VIAL IV PRN (07:45)
[2021-04-11] MEDS ORDERED: Naloxone 0.4 mg VIAL 0.4 mg/ml 1 ml VIAL IV PRN (07:45)
[2021-04-11] MEDS ORDERED: Ondansetron 4 mg VIAL 2 MG/ML 2 ml VIAL IV PRN ×2 (07:45→08:35)
[2021-04-11] MEDS ORDERED: Bupivacaine 0.5% SDV PF 30ML VIAL ONE (07:57)
[2021-04-11] MEDS ORDERED: EPHEDrine (Pressors) 50 MG/ML VIAL ONE (08:05)
[2021-04-11] MEDS ORDERED: Lactulose 30 ml UDC PO PRN (08:35)
[2021-04-11] MEDS ORDERED: diPHENhydraMINE 25 mg TAB PO PRN (08:35)
[2021-04-11] MEDS ORDERED: Ondansetron ODT 4 mg TAB 4 MG TAB PO PRN (08:35)
[2021-04-11] MEDS ORDERED: Magnesium Hydroxide LIQ 30 ML UDC PO PRN (08:35)
[2021-04-11] MEDS ORDERED: CARBOXYMETHYLCELLULOSE SODIUM 0.25% BOTH EYES PRN (08:45)
[2021-04-11] MEDS: Magnesium Hydroxide LIQ 30 ML UDC PO SCH ×2 (13:21→20:27)
[2021-04-11] MEDS: Vitamin THERAPEUTIC TAB PO SCH (13:21)
[2021-04-11] MEDS: Lactated Ringers 1000 ml BAG 1,000 ML IV SCH ×2 (13:28→22:32)
[2021-04-11] MEDS: Clindamycin 600 MG/D5W BAG 600 MG/50 ML BAG IV SCH (16:01)
[2021-04-11] MEDS ORDERED: CMCS: Simvastatin 20 mg TAB (NF) PO SCH (21:00)
[2021-04-12] MEDS: Clindamycin 600 MG/D5W BAG 600 MG/50 ML BAG IV SCH ×2 (01:47→09:01)
[2021-04-12 06:59] LABS: Hematocrit 28 % (35-47); Hemoglobin 9.4 g/dL (12.0-16.0); Mean Platelet Volume 9.1 fL (7.4-10.4); Platelet Count 184 10^3/uL (150-450)
[2021-04-12 07:12] LABS: Potassium 4.1 mmol/L (3.5-5.0)
[2021-04-12 07:38] LABS: Calcium 8.9 mg/dL (8.6-10.3)
[2021-04-12 07:39] VITALS: BP 100/61
[2021-04-12] MEDS: Vitamin THERAPEUTIC TAB PO SCH (09:00)
[2021-04-12] MEDS: Magnesium Hydroxide LIQ 30 ML UDC PO SCH (09:01)
[2021-04-12] MEDS ORDERED: Dextran 70/Hypromellose Tears Eye Drops 15 ml BTL (for Artificials Tears) BOTH EYES PRN (10:16)
== END 2021-04-12 13:15 | disposition home or self-care (01) ==
LOC: SSU 06:39 → OR 06:39
PROVIDERS: ADMIT Orthopaedic Surgery Adult Reconstructive Orthopaedic Surgery; ATTEND Orthopaedic Surgery Adult Reconstructive Orthopaedic Surgery